=== PATIENT | male | born 1925 | race Caucasian/White ===

== ENCOUNTER 2016-11-06 10:10 | Inpatient (IN) | payer OTHER, MEDICARE ==
[2016-11-06] MEDS ORDERED: Sodium Chloride 0.9% 1,000 ML PRIMARY IV ONE (10:39)
[2016-11-06] MEDS ORDERED: NORMAL SALINE 10 ML SYRINGE FLUSH IVP PRN (10:39)
[2016-11-06 10:58] LABS: BASOPHILS # (AUTO) 0.05 10*3/UL; EOSINOPHILS % (AUTO) 6.6 % (0-8); HEMATOCRIT 40.9 % (42.0-52.0); HEMOGLOBIN 13.4 g/dL (14.0-18.0); IMM GRAN % (AUTO) 0 % (0-5); IMM GRAN# (AUTO) 0 10*3/UL; LYMPHOCYTES # (AUTO) 1.02 10*3/uL; LYMPHOCYTES % (AUTO) 19.7 % (10-50); MEAN CORPUSCULAR HEMOGLOBIN 29.5 PG (27-31); MEAN CORPUSCULAR HGB CONC 32.8 g/dL (33-37); MEAN PLATELET VOLUME 8.7 FL (7.4-12.2); MONOCYTES # (AUTO) 0.83 10*3/UL (0.3-0.8); MONOCYTES % (AUTO) 16.1 % (5-15); NEUTROPHILS # (AUTO) 2.93 10*3/UL; NEUTROPHILS % (AUTO) 56.6 % (50-80); RDW COEFFICIENT OF VARIATION 14.4 % (11.5-14.5); RED BLOOD COUNT 4.54 10^6/uL (4.70-6.10); WHITE BLOOD COUNT 5.17 10^3/uL (4.8-10.8)
[2016-11-06 11:01] LABS: PLATELET MORPHOLOGY COMMENT NORMAL MORPHOLOGY (NORM)
[2016-11-06 11:08] LABS: ASPARTATE AMINO TRANSFERASE 31 IU/L (21-57); BILIRUBIN,TOTAL 1.3 mg/dL (0.3-1.2); BLOOD UREA NITROGEN 27 mg/dL (7-22); BUN/CREATININE RATIO 16.87 (6-20); CALCIUM 9.2 mg/dL (8.7-10.7); CHLORIDE 106 meq/L (98-112); CREATININE 1.6 mg/dL (0.70-1.50); GLUCOSE 98 mg/dL (78-110); MAGNESIUM 2.2 mg/dL (1.6-2.4); POTASSIUM 4.8 meq/L (3.8-5.2); SODIUM 145 meq/L (135-145); TOTAL PROTEIN 6.9 g/dL (6.1-8.0)
[2016-11-06 11:20] LABS: CREATINE KINASE MB 1.55 NG/DL (0.00-5.00)
[2016-11-06 11:50] LABS: TROPONIN I 0.191 ng/mL (< 0.040)
--- NOTE | 2016-11-06 12:10 | EKG ---
[address] [address] Measurements Intervals [place] Rate: 65 P: -47 MO: 254 QRS: -65 QRSD: 200 T: 104 QT: 481 QTc: 492 Interpretive Statements ELECTRONIC VENTRICULAR PACEMAKER ABNORMAL RHYTHM ECG Compared to ECG 08/29/2016 18:52:12 No significant changes Electronically Signed On 11-06-16 15:00:20 MST by John Maldonado [email or web address]
[2016-11-06 12:17] LABS: BILIRUBIN,URINE NEGATIVE (NEG); CLARITY,URINE CLEAR (CLEAR); GLUCOSE, URINE (UA) NEGATIVE (NEG); LEUKOCYTE ESTERASE ,URINE NEGATIVE (NEG); NITRATE,URINE NEGATIVE (NEG); OCCULT BLOOD,URINE Trace-lysed (NEG); PROTEIN,URINE NEGATIVE (NEG); UROBILINOGEN,URINE 0.2 EU/dL (0.2)
[2016-11-06 12:18] LABS: URINE SAMPLE TYPE CLEAN CATCH URINE
[2016-11-06 12:34] LABS: BACTERIA,URINE RARE; SQUAMOUS EPITHELIAL CELL,UR RARE
--- NOTE | 2016-11-06 12:41 | DI ---
XR CXR 2VW PA/LAT,11/06/2016 11:59 AM: Clinical History: Cough and elevated BNP Previous Exam: August 28, 2016 Findings: PA and lateral views of the chest are obtained, and demonstrate cardiomegaly and some increased inter stitial markings. There is blunting of the left costophrenic angle which has improved significantly s dameon the prior exam. There is stable pacemaker. Impression: 1. Stable cardiomegaly. 2. Improving left pleural effusion.
[2016-11-06] MEDS ORDERED: FUROSEMIDE 10 MG/1 ML - 4 ML IVP ONE (14:15)
[2016-11-06] MEDS ORDERED: TAMSULOSIN 0.4 MG CAPSULE PO SCH (14:15)
--- NOTE | 2016-11-06 14:21 | PDOC ---
History and Physical - History of Present Illness Date and Time of Service: 11/06/2016 2:23 PM Chief Complaint: Dizziness, decreased energy and not feeling well for 1-2 days History of Present Illness: This is an 89 years old male with medical history significant for history of aortic stenosis status post aortic valve replacement in 2013 with bioprosthetic valve, hypertension, hypothyroidism and recent admission back in August for shortness of breath at that time it was attributed to congestive heart failure he had a an echocardiogram which showed wall motion abnormalities, potentially critical aortic stenosis and possible LV thrombus he was treated medically then and discharge and he followed up with cardiology and based on his description it sounds like he had a ROXY but he doesn't know the results. He said he came into the hospital because of history of dizziness that happened yesterday and today in addition to decreased exercise tolerance based on his description, he seems also to be fixated on his heart rate as he checks his heart rate and blood pressure and his oxygen and it sounded like his heart rates fluctuate and he was concerned about it. Because of all the symptoms he came into the ER who thought that he has congestive heart failure and was admitted. Currently he feels better he is denying symptoms not dizzy or lightheaded. And he is denying shortness of breath. There is no leg swelling, no PND and no orthopnea based on his description. There is no anginal chest pain based on his description. Past Medical History Medical History: 1. Hypertension. 2. Hyperlipidemia. 3. Aortic stenosis and aortic valve replacement in May 2014 borderline. 4. Pacemaker insertion for bradycardia in 1999- Surgical History: Aortic replacement bioprosthetic, appendectomy, ankle fracture repair Past Social History: Used to smoke, doesn't drink nor drugs and lives with his . Tobacco Use: Former Smoker Substance Use Type: None Alcohol Use: None Medication / Allergies Home Medications: Home Medications Medication Instructions Recorded Confirmed Type Acetaminophen [Acetaminophen 8 1 tab PO Q6H tab 06/29/14 11/06/16 History Hour] Aspirin 1 tab PO DAILY tab 06/29/14 11/06/16 History Docusate Sodium 1 cap PO BID cap 06/29/14 11/06/16 History Naproxen Sodium [Aleve] 1 cap PO QD #30 cap 06/09/16 11/06/16 History Furosemide 40 mg PO BID@0700,1300 #180 tab 09/30/16 11/06/16 Clinic Levothyroxine Sodium 1 tab PO QAM #90 tab 09/30/16 11/06/16 Clinic Lorazepam 1 mg PO QHS #90 tab 09/30/16 11/06/16 Clinic Losartan Potassium 1 tab PO DAILY #90 tab 09/30/16 11/06/16 Clinic Potassium Chloride 20 meq PO DAILY #90 tablet.er 09/30/16 11/06/16 Clinic Simvastatin 1 tab PO QHS #90 tab 09/30/16 11/06/16 Clinic Tamsulosin HCl 1 tab PO QHS #90 cap 09/30/16 11/06/16 Clinic Allergies/Adverse Reactions: Allergies Allergy/AdvReac Type Severity Reaction Status Date / Time No Known Allergies Allergy Verified 11/06/16 10:26 Review of Systems - Review of Systems All Systems: Reviewed & No Additional Complaints Except as Stated Exam - Vitals Vital Signs: Vital Signs Temperature 97.4 F Temperature Source Temporal Artery Scan Pulse Rate [Pulse Oximeter] 70 Pulse Rate 64 Respiratory Rate 26 Blood Pressure [Left Arm] 130/69 Blood Pressure 129/82 Pulse Ox 98 Oxygen Flow Rate 2 Oxygen Delivery Method Nasal Cannula Height 5 ft 8 in Weight 183 lb 3.2 oz - General General Appearance: POSITIVE: No Acute Distress, Cooperative - Head Head Exam: POSITIVE: Normal Inspection, Atraumatic - Eye Eye Exam: POSITIVE: Normal Appearance - ENT ENT Exam: POSITIVE: Normal Exam - Neck Neck Exam: POSITIVE: Normal Inspection - Respiratory Respiratory Exam: POSITIVE: Clear to Auscultation - Bilaterally - Cardiovascular Cardiovascular Exam: POSITIVE: RRR Additional Cardiovascular Details: Prosthetic sounds. - GI/Abdominal GI/Abdominal Exam: POSITIVE: Normal Bowel Sounds, Non Tender, Non Distended, Soft - Rectal Rectal Exam: POSITIVE: Deferred - External Exam: POSITIVE: Deferred - Extremities Extremities Exam: POSITIVE: Normal Inspection - Back Back Exam: POSITIVE: Normal Inspection - Neurological Neurological Exam: POSITIVE: Alert, CN II-XII Intact, Speech Intact / Clear, Moves All Extremities Equally - Psychiatric Psychiatric Exam: POSITIVE: Normal Affect - Integumentary Integumentary Exam: POSITIVE: Normal Color Results - Labs CBC and BMP: 11/06/16 10:50 11/06/16 10:50 - EKG Data -: EKG Interpreted by Me (EKG showed paced rhythm) - Imaging Status: Report Reviewed by Me (Cardiomegaly with interstitial changes noted. The pleural effusion that he had before seem to be improved) Assessment and Plan - Patient Problems (1) Congestive heart failure Current Visit: No Status: Acute Comment: His description of symptoms is vague but with a reduced exercise tolerance and the dizziness this may be related to to CHF. I think will give him a trial of Lasix try to get the records from cardiology about his ROXY and may need to discuss with them and repeat his troponin tomorrow. Qualifiers: Congestive heart failure type: unspecified congestive heart failure type Congestive heart failure chronicity: chronic Qualified Description: Chronic congestive heart failure, unspecified congestive heart failure type Qualifier Code(s): (I50.9) Heart failure, unspecified (2) Hypertension Current Visit: Yes Status: Acute Comment: Same medications (3) Hypothyroidism Current Visit: Yes Status: Acute Comment: Same medications (4) Elevated troponin Current Visit: Yes Status: Acute Comment: There is mild elevation in his troponin was repeated. Based on his description he didn't have a bypass. He is on aspirin already.
[2016-11-06] MEDS: NORMAL SALINE 10 ML SYRINGE FLUSH IVP PRN (14:33)
[2016-11-06] MEDS: TAMSULOSIN 0.4 MG CAPSULE PO SCH (20:50)
[2016-11-06] MEDS: DOCUSATE 100 MG CAPSULE PO SCH (20:51)
[2016-11-06] MEDS: Simvastatin Tab 40 MG TAB PO SCH (20:51)
[2016-11-06] MEDS: LORazepam 1 MG TABLET PO SCH (20:51)
[2016-11-06] MEDS ORDERED: Simvastatin Tab 40 MG TAB PO SCH (21:00)
[2016-11-06] MEDS ORDERED: LORazepam 1 MG TABLET PO SCH (21:00)
--- NOTE | 2016-11-07 00:10 | PDOC ---
General Adult HPI - General Chief Complaint: Neurological Complaints Stated Complaint: shortness of breath," I just don't feel well" dizzy, nausea, left arm pain and numbness Date Seen by Provider: 11/06/16 Time Seen by Provider: 10:20 Source: POSITIVE: Patient, Spouse, Old records Exam Limitations: POSITIVE: No limitations Nurse's Notes Reviewed & Considered: Yes - History of Present Illness Initial Comment: The patient is an 89-year-old male. He presents to the emergency room complaining of multiple complaints. He states he" feels unstable and I just don 't feel well". He complains of feeling dizzy and he states he gets short of breath with minimal exertion. No fevers or chills. No head chest or abdominal pain. He does complain of some numbness to the left side of his face and left arm. Patient has a history of aortic valvular heart disease and has had an aortic valve replacement. He also has a history of congestive heart failure. He has a history of a ventricular pacemaker. He states he has been evaluated by his hearing therapy teacher in [place] and he states he has been told that his aortic valve is "getting bad", but "they don't know if they can do anything about it." He was admitted this past August for congestive heart failure. Have you received a tetanus shot in the past 10 years?: No Body Location Affected: REPORTS: Other (As above; multiple somatic complaints) Timing: REPORTS: Gradual, Getting Worse Duration: >24 hours (2-3 days) Severity: Moderate Quality: REPORTS: Other (Patient denies any pain) Modifying Factors: improves with: Exercise (Shortness of breath with activity) Similar Symptoms Previously: Yes Recent Care Received: REPORTS: Recently Seen, Treated by MD (As above) Any Prior Injuries Related to Current Complaint?: No - Patient Home Medications Home Medications: Home Medications Acetaminophen [Acetaminophen 8 Hour] 1 tab PO Q6H tab 06/29/14 Aspirin 1 tab PO DAILY tab 06/29/14 Docusate Sodium 1 cap PO BID cap 06/29/14 Naproxen Sodium [Aleve] 1 cap PO QD #30 cap 06/09/16 Furosemide 40 mg PO BID@0700,1300 #180 tab 09/30/16 Levothyroxine Sodium 1 tab PO QAM #90 tab 09/30/16 Lorazepam 1 mg PO QHS #90 tab 09/30/16 Losartan Potassium 1 tab PO DAILY #90 tab 09/30/16 Potassium Chloride 20 meq PO DAILY #90 tablet.er 09/30/16 Simvastatin 1 tab PO QHS #90 tab 09/30/16 Tamsulosin HCl 1 tab PO QHS #90 cap 09/30/16 - Patient Allergies Allergies/Adverse Reactions: Allergies Allergy/AdvReac Type Severity Reaction Status Date / Time No Known Allergies Allergy Verified 11/06/16 22:29 Past Medical History - heen HEENT History: Hard of Hearing, Other (please comment) Additional HEENT History: BILATERAL HEARING AIDES Cardiovascular History: Hypertension, Previous [place], Pacemaker, Hyperlipidemia Additional Cardiovasular History: murmur, aortic stenosis by history. AORTIC VALVE REPLACEMENT IN MAY 2014 Respiratory History: Denies History Gastrointestinal History: Denies History Genitourinary History: Other (please comment) Additional Genitourinary History: BPH Endocrine History: Hypothyroidism, Other (please comment) Additional Endocrine History: PRE DIABETES Musculoskeletal History: Other (please comment) Prosthesis or Implant: No Additional Musculoskeletal History: Nerve damage at the bottom of feet bilaterally. Neurological History: Denies History Blood Disorders: Denies History Psychiatric History: Denies History History of Sexually Transmitted Diseases: No Male Reproductive History: Denies History Cancer History: Skin In Past Year Been Physically Harmed or Verbally Threatened: No (PER PATIENT) History of MDRO: No History of Other Communicable Diseases: No Tobacco Use: Former Smoker Alcohol Use: None Substance Use Type: None Previous Surgical History: Yes Type / Date of Surgery: APPY, R ANKLE, PACEMAKER, BILATERAL CATARACT REMOVAL, OPEN HEART FOR AORTIC VALVE REPLACEMENT 05/2014 Anesthesia Reactions: No Malignant Hyperthermia: No Family History of Malignant Hyperthermia: No Significant Family History: Other (please comment) Additional Family History: UNKNOWN Past Medical History Reviewed: Reviewed - No Changes ROS - Limitations ROS Limitations: No Limitations Constitution: REPORTS: Weakness, Other (Fatigability and dizziness) Cardiovascular: REPORTS: Other (Dyspnea with exertion) Respiratory: REPORTS: Shortness Of Breath Neurological: REPORTS: Denies Neuro Symptoms Gastrointestinal: REPORTS: Denies GI Symptoms Endocrine: REPORTS: Denies Symptoms Musculoskeletal: REPORTS: Denies MS Symptoms Genitourinary: REPORTS: Denies Symptoms Eyes: REPORTS: Denies Symptoms ENT: REPORTS: Denies Symptoms Skin: REPORTS: Denies Skin Symptoms Lympathic: REPORTS: Denies Lympathic Symptoms Immunologic: POSITIVE: Denies Symptoms Psychiatric: POSITIVE: Denies Psych Symptoms General Adult Exam - General Appearance General Appearance: POSITIVE: Alert, Cooperative, No Acute Distress, No Evidence of Trauma - HEENT HEENT: POSITIVE: Head Inspection Nml, Eyes Inspection Nml, Ears Inspection Nml, Nose Inspection Nml, Oral/Dental Inspect. Nml, Pharynx Inspect. Nml, PERRL, EOMI - Pupils Pupil Size: 4 mm: Bilateral (PERRLA) - Neck Neck: POSITIVE: Normal Inspection, Thyroid Normal - Respiratory Respiratory: POSITIVE: Rales (Bibasilar rales) - Cardiovascular Cardiovascular: POSITIVE: Regular Rate & Rhythm, No Murmur, No Gallop, PMI Normal Peripheral Pulses: Radial (R): 2+, Radial (L): 2+ - Abdomen Abdomen: Soft: (All Quadrants), Normal Bowel Sounds: (All Quadrants), Denies Tenderness: (All Quadrants), No Splenomegaly: (All Quadrants), No Hepatomegaly: (All Quadrants), No Guarding: (All Quadrants), No Rebound: (All Quadrants), No Palpable Pulse: (All Quadrants), No Palpabale Mass: (All Quadrants), No Distention: (All Quadrants), No Rigidity: (All Quadrants) - Back Back: POSITIVE: Normal Inspection - Skin Skin: POSITIVE: Normal Color, Warm, Dry, No Rash - Extremities Extremity: Non-Tender: (All Extremities), Normal ROM: (All Extremities), Normal Inspection: (All Extremities) - Neurological / Psychological Neurological: POSITIVE: Oriented X3, director oracle database Normal As Tested, Motor Normal, Sensation Normal, 5, 6 General Adult Progress - Results Reviewed by me Xrays/CTs/US Reviewed by me: Yes Discussed with Radiologist: Yes Radiology Findings: Some congestion. Pacemaker and artificial aortic valve noted Lab Results Reviewed: Yes Lab Results:: Laboratory Results 11/06/16 11/06/16 Range/Units 10:50 12:07 WBC 5.17 (4.8-10.8) 10^3/uL RBC 4.54 L (4.70-6.10) 10^6/uL Hgb 13.4 L (14.0-18.0) g/dL Hct 40.9 L (42.0-52.0) % MCV 90.1 H (80-90) FL MCH 29.5 (27-31) PG MCHC 32.8 L (33-37) g/dL RDW Std Deviation 46.6 (39-50) fL RDW Coeff of Butch 14.4 (11.5-14.5) % Plt Count 192 (140-350) 10*3/uL MPV 8.7 (7.4-12.2) FL Immature Gran % (Auto) 0 (0-5) % Neut % (Auto) 56.6 (50-80) % Lymph % (Auto) 19.7 (10-50) % [place] % (Auto) 16.1 H (5-15) % Eos % (Auto) 6.6 (0-8) % Baso % (Auto) 1.0 (0-1) % Immature Gran # (Auto) 0 10*3/UL Neut # (Auto) 2.93 10*3/UL Lymph # (Auto) 1.02 10*3/uL [place] # (Auto) 0.83 H (0.3-0.8) 10*3/UL Eos # (Auto) 0.34 10*3/UL Baso # (Auto) 0.05 10*3/UL WBC Morphology Comment Normal morphology (NORM) Plt Morphology Comment Normal morphology (NORM) RBC Morph Comment Normal morphology (NORM) Sodium 145 (135-145) meq/L Potassium 4.8 (3.8-5.2) meq/L Chloride 106 (98-112) meq/L Carbon Dioxide 25 (23-33) meq/L Anion Gap 14 (5-20) BUN 27 H (7-22) mg/dL Creatinine 1.6 H (0.70-1.50) mg/dL Estimated GFR Reference Librarian BUN/Creatinine Ratio 16.87 (6-20) Glucose 98 (78-110) mg/dL Calculated Osmolality 304.0 H (267-292) mOsm/kg Calcium 9.2 (8.7-10.7) mg/dL Magnesium 2.2 (1.6-2.4) mg/dL Total Bilirubin 1.3 H (0.3-1.2) mg/dL AST 31 (21-57) IU/L ALT 27 (21-72) IU/L Alkaline Phosphatase 120 (38-126) IU/L Total Creatine Kinase 78 (55-170) IU/L CK-MB (CK-2) 1.55 (0.00-5.00) NG/DL Troponin I 0.191 H* (< 0.040) ng/mL NT-Pro-B Natriuret Pep 4390 H (0-450) PG/ML Total Protein 6.9 (6.1-8.0) g/dL Albumin 4.3 (3.5-4.8) g/dL Globulin 2.7 (2.50-4.10) g/dL Albumin/Globulin Ratio 1.50 (1.3-2.0) mg/g TSH 3.14 (0.2700-4.2000) uIU/mL Ur Collection Type Clean catch urine Urine Color Yellow Urine Clarity Clear (CLEAR) Urine pH 6.0 (5.0-8.5) Ur Specific [place] 1.015 (1.005-1.030) Urine Protein Negative (NEG) mg/dl Urine Glucose (UA) Negative (NEG) mg/dL Urine Ketones Negative (NEG) Urine Occult Blood Trace-lysed H (NEG) Urine Nitrate Negative (NEG) Urine Bilirubin Negative (NEG) Urine Urobilinogen 0.2 (0.2) EU/dL Ur Leukocyte Esterase Negative (NEG) Urine RBC 2-4 (NONE) /hpf Urine WBC 1-3 (NONE) Ur Squamous Epith Cells Rare (NONE) Ur Renal Epithelial Cell None (NONE) Urine Crystals None Urine Bacteria Rare (NONE) Urine Casts None (NONE) Urine Mucus None (NONE) Urine Trichomonas None (NONE) Urine Yeast None (NONE) Ur Culture Indicated? Culture not set EKG Interpreted/Reviewed By Me:: Yes (ventricular pacemaker) EKG Interpretation:: POSITIVE: Abnormal EKG (Ventricular pacemaker) - Patient's Progress Pain Medication Addressed: POSITIVE: Not Applicable School/Work Release Addressed: POSITIVE: Not Applicable Re-Examine Time: 12:00 Status: POSITIVE: Unchanged, Re-Examined Antibiotics Given: No - Consult Consult (If Yes, Name of Consulting MD & Time Called): Yes (Dr. Hammer, hospitalist, [id number]) Consulting MD will see pt:: POSITIVE: [facility] Admit Counseled: POSITIVE: Patient, Family, RE: Lab Results, RE: Radiology Results, RE : DX, RE: Need for F/U Patient Care Time - Estimated PCT Patient Care Time (In Minutes): 60 Vital Signs - Recent Vital Signs Vital Signs: Vital Signs (Last 8 hours) Temp Pulse Pulse Pulse Resp BP Pulse Ox 11/06/16 22:51 75 11/06/16 20:17 97.1 F 76 20 144/68 96 11/06/16 19:00 68 66 65 24 11/06/16 16:17 97.6 F 66 24 130/70 93 - VS Reviewed Vital Signs Reviewed: Yes Discharge Clinical Impression: Status post placement of cardiac pacemaker, Elevated troponin Congestive heart failure Qualifiers: Congestive heart failure type: unspecified congestive heart failure type Congestive heart failure chronicity: chronic Qualifier Code: (I50.9) Heart failure, unspecified Discharge Disposition: Admit to Inpatient Condition: Fair Date Decision to Admit to Inpatient: 11/06/16 Time Decision to Admit to Inpatient: 12:00
[2016-11-07] MEDS: LEVOTHYROXINE 75 MCG TABLET PO SCH (05:37)
[2016-11-07 06:44] LABS: BILIRUBIN,TOTAL 1.7 mg/dL (0.3-1.2); CALCIUM 9.4 mg/dL (8.7-10.7); CREATININE 1.4 mg/dL (0.70-1.50); POTASSIUM 4.4 meq/L (3.8-5.2); TOTAL PROTEIN 6.7 g/dL (6.1-8.0)
[2016-11-07] MEDS: NORMAL SALINE 10 ML SYRINGE FLUSH IVP PRN (06:55)
[2016-11-07] MEDS ORDERED: FUROSEMIDE 10 MG/1 ML - 4 ML IVP SCH (07:00)
[2016-11-07] MEDS: POTASSIUM CHLORIDE 20 MEQ TAB PO SCH (09:24)
[2016-11-07] MEDS: LOSARTAN 50 MG TABLET PO SCH (09:24)
[2016-11-07] MEDS: ASPIRIN 81 MG (BABY) CHEWABLE TABLET PO SCH (09:24)
[2016-11-07] MEDS: DOCUSATE 100 MG CAPSULE PO SCH ×2 (09:24→20:53)
--- NOTE | 2016-11-07 13:12 | PDOC(PROG) ---
Interval History: Doing better less short of breath No chest pain no nausea vomiting Objective : Data - Labs CBC and BMP: 11/06/16 10:50 11/07/16 05:31 Labs - Last 24 Hours: Laboratory Results 11/06/16 11/07/16 Range/Units 17:54 05:31 Sodium 141 (135-145) meq/L Potassium 4.4 (3.8-5.2) meq/L Chloride 103 (98-112) meq/L Carbon Dioxide 24 (23-33) meq/L Anion Gap 14 (5-20) BUN 28 H (7-22) mg/dL Creatinine 1.4 (0.70-1.50) mg/dL Estimated GFR (>60 ml/min/1.73m(2)) BUN/Creatinine Ratio 20.00 (6-20) Glucose 90 (78-110) mg/dL Calculated Osmolality 297.0 H (267-292) mOsm/kg Calcium 9.4 (8.7-10.7) mg/dL Total Bilirubin 1.7 H (0.3-1.2) mg/dL AST 22 (21-57) IU/L ALT 26 (21-72) IU/L Alkaline Phosphatase 113 (38-126) IU/L Troponin I 0.193 H* 0.168 H* (< 0.040) ng/mL NT-Pro-B Natriuret Pep 3880 H (0-450) PG/ML Total Protein 6.7 (6.1-8.0) g/dL Albumin 4.2 (3.5-4.8) g/dL Globulin 2.6 (2.50-4.10) g/dL Albumin/Globulin Ratio 1.60 (1.3-2.0) mg/g Objective : Exam - General General Appearance: Cooperative - Neck Neck Exam: Normal Inspection - Respiratory Respiratory Exam: Clear to Auscultation - Bilaterally, Decreased Breath Sounds - Cardiovascular Cardiovascular Exam: RRR, No Murmur, +S1, +S2 - GI/Abdominal GI/Abdominal Exam: Non Tender, Non Distended, Soft - Extremities Extremities Exam: No Clubbing Present, No Edema Present, No Cyanosis Present - Neurological Neurological Exam: Alert, CN II-XII Intact, No Facial Droop Assessment and Plan - Patient Problems (1) Congestive heart failure Current Visit: Yes Status: Acute Qualifiers: Congestive heart failure type: unspecified congestive heart failure type Congestive heart failure chronicity: chronic Qualified Description: Chronic congestive heart failure, unspecified congestive heart failure type Qualifier Code(s): (I50.9) Heart failure, unspecified - Assessment / Plan Additional Assessment/Plan Details: #1 cardiomyopathyelevated BNP 4000 range today it is better mildly elevated troponins I had a discussion with Dr. keshav Rogers I told him the situation with the patient and his history he also looked at his notes from previous visits recommended to ira patient follow-up with him as an outpatient the patient artery has an appointment on November [address] gregorio
[2016-11-07] MEDS ORDERED: FUROSEMIDE 10 MG/1 ML - 2 ML VIAL IVP SCH (13:30)
[2016-11-07] MEDS: FUROSEMIDE 10 MG/1 ML - 4 ML IVP SCH (13:42)
[2016-11-07] MEDS: Simvastatin Tab 40 MG TAB PO SCH (20:52)
[2016-11-07] MEDS: LORazepam 1 MG TABLET PO SCH (20:53)
[2016-11-07] MEDS: TAMSULOSIN 0.4 MG CAPSULE PO SCH (20:53)
[2016-11-08] MEDS: LEVOTHYROXINE 75 MCG TABLET PO SCH (05:58)
[2016-11-08 07:16] VITALS: TEMP 97.2
[2016-11-08] MEDS: FUROSEMIDE 10 MG/1 ML - 4 ML IVP SCH (07:17)
--- NOTE | 2016-11-08 07:42 | EKG ---
[address] [address] Measurements Intervals [place] Rate: 61 P: -42 IA: 276 QRS: -70 QRSD: 206 T: 102 QT: 503 QTc: 506 Interpretive Statements ELECTRONIC VENTRICULAR PACEMAKER ABNORMAL RHYTHM ECG Compared to ECG 11/06/2016 10:19:04 No significant changes Electronically Signed On 11-08-16 16:05:06 MST by John Maldonado [email or web address]
--- NOTE | 2016-11-08 09:00 | DCSUMMARY ---
Hospitalization Summary Hospital Course: Final Discharge Diagnosis: Current Visit Problems Problem Status Priority Diagnosed Code Congestive heart failure Acute I50.9 Elevated troponin Acute R74.8 Hypertension Acute I10 Hypothyroidism Acute E03.9 Status post placement of cardiac pacemaker Acute Z95.0 Diagnostic Data, Laboratory Data, and Procedures of Signifigance: Laboratory Results 11/06/16 11/06/16 11/06/16 Range/Units 10:50 12:07 17:54 WBC 5.17 (4.8-10.8) 10^3/uL RBC 4.54 L (4.70-6.10) 10^6/uL Hgb 13.4 L (14.0-18.0) g/dL Hct 40.9 L (42.0-52.0) % MCV 90.1 H (80-90) FL MCH 29.5 (27-31) PG MCHC 32.8 L (33-37) g/dL RDW Std Deviation 46.6 (39-50) fL RDW Coeff of Butch 14.4 (11.5-14.5) % Plt Count 192 (140-350) 10*3/uL MPV 8.7 (7.4-12.2) FL Immature Gran % (Auto) 0 (0-5) % Neut % (Auto) 56.6 (50-80) % Lymph % (Auto) 19.7 (10-50) % [place] % (Auto) 16.1 H (5-15) % Eos % (Auto) 6.6 (0-8) % Baso % (Auto) 1.0 (0-1) % Immature Gran # (Auto) 0 10*3/UL Neut # (Auto) 2.93 10*3/UL Lymph # (Auto) 1.02 10*3/uL [place] # (Auto) 0.83 H (0.3-0.8) 10*3/UL Eos # (Auto) 0.34 10*3/UL Baso # (Auto) 0.05 10*3/UL WBC Morphology Comment Normal morphology (NORM) Plt Morphology Comment Normal morphology (NORM) RBC Morph Comment Normal morphology (NORM) Sodium 145 (135-145) meq/L Potassium 4.8 (3.8-5.2) meq/L Chloride 106 (98-112) meq/L Carbon Dioxide 25 (23-33) meq/L Anion Gap 14 (5-20) BUN 27 H (7-22) mg/dL Creatinine 1.6 H (0.70-1.50) mg/dL Estimated GFR Manager Reading BUN/Creatinine Ratio 16.87 (6-20) Glucose 98 (78-110) mg/dL Calculated Osmolality 304.0 H (267-292) mOsm/kg Calcium 9.2 (8.7-10.7) mg/dL Magnesium 2.2 (1.6-2.4) mg/dL Total Bilirubin 1.3 H (0.3-1.2) mg/dL AST 31 (21-57) IU/L ALT 27 (21-72) IU/L Alkaline Phosphatase 120 (38-126) IU/L Total Creatine Kinase 78 (55-170) IU/L CK-MB (CK-2) 1.55 (0.00-5.00) NG/DL Troponin I 0.191 H* 0.193 H* (< 0.040) ng/mL NT-Pro-B Natriuret Pep 4390 H (0-450) PG/ML Total Protein 6.9 (6.1-8.0) g/dL Albumin 4.3 (3.5-4.8) g/dL Globulin 2.7 (2.50-4.10) g/dL Albumin/Globulin Ratio 1.50 (1.3-2.0) mg/g TSH 3.14 (0.2700-4.2000) uIU/mL Ur Collection Type Clean catch urine Urine Color Yellow Urine Clarity Clear (CLEAR) Urine pH 6.0 (5.0-8.5) Ur Specific [place] 1.015 (1.005-1.030) Urine Protein Negative (NEG) mg/dl Urine Glucose (UA) Negative (NEG) mg/dL Urine Ketones Negative (NEG) Urine Occult Blood Trace-lysed H (NEG) Urine Nitrate Negative (NEG) Urine Bilirubin Negative (NEG) Urine Urobilinogen 0.2 (0.2) EU/dL Ur Leukocyte Esterase Negative (NEG) Urine RBC 2-4 (NONE) /hpf Urine WBC 1-3 (NONE) Ur Squamous Epith Cells Rare (NONE) Ur Renal Epithelial Cell None (NONE) Urine Crystals None Urine Bacteria Rare (NONE) Urine Casts None (NONE) Urine Mucus None (NONE) Urine Trichomonas None (NONE) Urine Yeast None (NONE) Ur Culture Indicated? Culture not set 11/07/16 11/08/16 Range/Units 05:31 07:39 WBC (4.8-10.8) 10^3/uL RBC (4.70-6.10) 10^6/uL Hgb (14.0-18.0) g/dL Hct (42.0-52.0) % MCV (80-90) FL MCH (27-31) PG MCHC (33-37) g/dL RDW Std Deviation (39-50) fL RDW Coeff of Butch (11.5-14.5) % Plt Count (140-350) 10*3/uL MPV (7.4-12.2) FL Immature Gran % (Auto) (0-5) % Neut % (Auto) (50-80) % Lymph % (Auto) (10-50) % [place] % (Auto) (5-15) % Eos % (Auto) (0-8) % Baso % (Auto) (0-1) % Immature Gran # (Auto) 10*3/UL Neut # (Auto) 10*3/UL Lymph # (Auto) 10*3/uL [place] # (Auto) (0.3-0.8) 10*3/UL Eos # (Auto) 10*3/UL Baso # (Auto) 10*3/UL WBC Morphology Comment (NORM) Plt Morphology Comment (NORM) RBC Morph Comment (NORM) Sodium 141 (135-145) meq/L Potassium 4.4 (3.8-5.2) meq/L Chloride 103 (98-112) meq/L Carbon Dioxide 24 (23-33) meq/L Anion Gap 14 (5-20) BUN 28 H (7-22) mg/dL Creatinine 1.4 (0.70-1.50) mg/dL Estimated GFR BUN/Creatinine Ratio 20.00 (6-20) Glucose 90 (78-110) mg/dL Calculated Osmolality 297.0 H (267-292) mOsm/kg Calcium 9.4 (8.7-10.7) mg/dL Magnesium (1.6-2.4) mg/dL Total Bilirubin 1.7 H (0.3-1.2) mg/dL AST 22 (21-57) IU/L ALT 26 (21-72) IU/L Alkaline Phosphatase 113 (38-126) IU/L Total Creatine Kinase (55-170) IU/L CK-MB (CK-2) (0.00-5.00) NG/DL Troponin I 0.168 H* 0.106 H (< 0.040) ng/mL NT-Pro-B Natriuret Pep 3880 H 3190 H (0-450) PG/ML Total Protein 6.7 (6.1-8.0) g/dL Albumin 4.2 (3.5-4.8) g/dL Globulin 2.6 (2.50-4.10) g/dL Albumin/Globulin Ratio 1.60 (1.3-2.0) mg/g TSH (0.2700-4.2000) uIU/mL Ur Collection Type Urine Color Urine Clarity (CLEAR) Urine pH (5.0-8.5) Ur Specific [place] (1.005-1.030) Urine Protein (NEG) mg/dl Urine Glucose (UA) (NEG) mg/dL Urine Ketones (NEG) Urine Occult Blood (NEG) Urine Nitrate (NEG) Urine Bilirubin (NEG) Urine Urobilinogen (0.2) EU/dL Ur Leukocyte Esterase (NEG) Urine RBC (NONE) /hpf Urine WBC (NONE) Ur Squamous Epith Cells (NONE) Ur Renal Epithelial Cell (NONE) Urine Crystals Urine Bacteria (NONE) Urine Casts (NONE) Urine Mucus (NONE) Urine Trichomonas (NONE) Urine Yeast (NONE) Ur Culture Indicated? History and Physical pertinent to Admission: Admitted for shortness of breath and dizziness and congestive heart failure Medical History: 1. Hypertension. 2. Hyperlipidemia. 3. Aortic stenosis and aortic valve replacement in May 2014 borderline. 4. Pacemaker insertion for bradycardia in Surgical History: Aortic replacement bioprosthetic, appendectomy, ankle fracture repair Past Social History: Used to smoke, doesn't drink nor drugs and lives with his . 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 Was admitted to the hospital because of dizziness since shortness of breath. He was diuresed with IV Lasix and also had positive troponins this morning he was scheduled for Lexiscan stress test and he started having chest pain he would put his hand in the middle chest and kept on saying something is funny and this is not resolved he also has a quite severe dementia and at times that he is unable to describe what he actually feels I talked to Dr. Rogers yesterday which recommended to keep on diuresing him and there was no need to be transferred this morning I talked with Dr. De Santiago because of his ongoing chest pain and still positive troponins and after I talk to the patient he said he is okay with that catheter. That's what the microeconomics professor recommends he will be transferred via ground ambulance to [facility] [place], [place] On the date of discharge, the patient was examined: Gen.: No acute distress, alert, nontoxic Heart: Regular rate and rhythm, no murmurs, clicks, gallops, or rubs Lungs: Clear to auscultation bilaterally, breathing is nonlabored Abdomen/GI: Normal tones on auscultation, soft, nontender, nondistended Musculoskeletal/extremities: No clubbing, cyanosis, or edema Vitals reviewed and are listed below Vital Signs (24 hrs) Temp Pulse Pulse Pulse Resp BP Pulse Ox 11/08/16 07:16 97.2 F 65 20 106/60 96 11/08/16 07:00 65 60 11/08/16 04:57 97.9 F 73 18 121/63 93 11/08/16 03:00 65 11/08/16 01:00 62 20 120/63 94 11/07/16 23:00 66 11/07/16 20:35 97.8 F 70 20 140/69 96 11/07/16 19:00 61 68 11/07/16 15:51 97.5 F 68 18 109/60 94 11/07/16 15:00 66 11/07/16 13:00 97.6 F 64 18 121/71 96 11/07/16 11:00 60 Assessment and Plan: 1. As per discharge assessments above 2. Disposition: [facility] [place], [place] 3. Condition on discharge, stable and improved. 4. Diet: regular diet 5. Activities: resume normal activities 6. Follow-Up: 1. PCP 2. 7. Medications at the Time of Discharge: 8. Time, care, counseling and coordination of care for this discharge is greater than 30 minutes. Home Medications Medication Instructions Recorded Confirmed Type Acetaminophen [Acetaminophen 8 1 tab PO Q6H tab 06/29/14 11/06/16 History Hour] Aspirin 1 tab PO DAILY tab 06/29/14 11/06/16 History Docusate Sodium 1 cap PO BID cap 06/29/14 11/06/16 History Naproxen Sodium [Aleve] 1 cap PO QD #30 cap 06/09/16 11/06/16 History Furosemide 40 mg PO BID@0700,1300 #180 tab 09/30/16 11/06/16 Clinic Levothyroxine Sodium 1 tab PO QAM #90 tab 09/30/16 11/06/16 Clinic Lorazepam 1 mg PO QHS #90 tab 09/30/16 11/06/16 Clinic Losartan Potassium 1 tab PO DAILY #90 tab 09/30/16 11/06/16 Clinic Potassium Chloride 20 meq PO DAILY #90 tablet.er 09/30/16 11/06/16 Clinic Simvastatin 1 tab PO QHS #90 tab 09/30/16 11/06/16 Clinic Tamsulosin HCl 1 tab PO QHS #90 cap 09/30/16 11/06/16 Clinic Active Medications Generic Name Dose Route Start Last Admin Trade Name Freq PRN Reason Stop Dose Admin Aspirin 81 mg 11/07/16 09:00 11/07/16 09:24 Aspirin Chewable Tab PO 81 mg DAILY BRINDA Administration Docusate Sodium 100 mg 11/06/16 21:00 11/07/16 20:53 Colace PO 100 mg BID BRINDA Administration Furosemide 40 mg 11/07/16 13:45 11/08/16 07:17 Lasix Inj IVP 40 mg 0700,1300 BRINDA Administration Sodium Chloride 25 mls @ 200 mls/hr 11/06/16 14:11 Normal Saline 0.9% IV .Post Infusion PRN No Primary IV for Flush ONLY Levothyroxine Sodium 75 mcg 11/07/16 06:30 11/08/16 05:58 Synthroid PO 75 mcg DAILY@0630 BRINDA Administration Lorazepam 1 mg 11/06/16 21:00 11/07/16 20:53 Ativan Tab PO 1 mg BEDTIME BRINDA Administration Losartan Potassium 100 mg 11/07/16 09:00 11/07/16 09:24 Cozaar PO 100 mg DAILY BRINDA Administration Potassium Chloride 20 meq 11/07/16 09:00 11/07/16 09:24 Klor-Con PO 20 meq DAILY BRINDA Administration Simvastatin 40 mg 11/06/16 21:00 11/07/16 20:52 Zocor PO 40 mg BEDTIME BRINDA Administration Sodium Chloride 5 - 20 ml 11/06/16 14:11 11/07/16 06:55 Saline Flush IVP 10 ml BID PRN Administration Flush Tamsulosin HCl 0.4 mg 11/06/16 21:00 11/07/16 20:53 Flomax PO 0.4 mg BEDTIME BRINDA Administration Exam - Vitals Vital Signs: Vital Signs Temperature 97.2 F Temperature Source Temporal Artery Scan Pulse Rate [Apical] 60 Pulse Rate [Pulse Oximeter] 65 Pulse Rate [Telemetry] 65 Pulse Rate 65 Respiratory Rate 20 Blood Pressure [Left Arm] 106/60 Blood Pressure 129/82 Pulse Ox 96 Oxygen Flow Rate 2 Oxygen Delivery Method Nasal Cannula Height 5 ft 8 in Weight 81.465 kg Patient Problems - Patient Problem List (1) Congestive heart failure Current Visit: Yes Status: Acute Qualifiers: Congestive heart failure type: unspecified congestive heart failure type Congestive heart failure chronicity: chronic Qualified Description: Chronic congestive heart failure, unspecified congestive heart failure type Qualifier Code(s): (I50.9) Heart failure, unspecified
[2016-11-08 09:22] VITALS: RESP 16
[2016-11-08] MEDS: POTASSIUM CHLORIDE 20 MEQ TAB PO SCH (09:31)
[2016-11-08] MEDS: DOCUSATE 100 MG CAPSULE PO SCH (09:33)
[2016-11-08] MEDS: ASPIRIN 81 MG (BABY) CHEWABLE TABLET PO SCH (09:40)
[2016-11-08] MEDS: LOSARTAN 50 MG TABLET PO SCH (09:40)
[2016-11-08] MEDS ORDERED: LOSARTAN 50 MG TABLET PO ONE (09:41)
[2016-11-08] MEDS ORDERED: ASPIRIN 81 MG (BABY) CHEWABLE TABLET ONE (09:41)
== END 2016-11-08 09:00 | disposition short-term general hospital (02) | DRG 293 ==
LOC: ER 10:10 → MED/SURG 12:52
PROVIDERS: ADMIT Internal Medicine; ATTEND Internal Medicine
DX: I50.9 Heart failure, unspecified (principal); Z95.0 Presence of cardiac pacemaker; I10 Essential (primary) hypertension; E03.9 Hypothyroidism, unspecified; I42.9 Cardiomyopathy, unspecified; I20.0 Unstable angina
CPT/HCPCS: 36415; 71020; 80053; 81001; 81003; 82550; 82553; 83735; 83880; 84443; 84484; 85025; 93005; 93010; 96374; 99285; J1940; J7030

== ENCOUNTER → 2016-12-06 | Outpatient (CLI) | payer OTHER, MEDICARE | LOC: MMPC 09:00 | DX: J20.9 Acute bronchitis, unspecified (principal); J06.9 Acute upper respiratory infection, unspecified | CPT/HCPCS: 99213; G0463 ==

== ENCOUNTER → 2016-12-10 | Outpatient (CLI) | payer OTHER, MEDICARE | LOC: MMPC 11:11 | PROVIDERS: ATTEND Internal Medicine | DX: I35.0 Nonrheumatic aortic (valve) stenosis (principal); Z95.3 Presence of xenogenic heart valve; R41.3 Other amnesia; Z95.0 Presence of cardiac pacemaker | CPT/HCPCS: 99214; G0463 ==

== ENCOUNTER → 2017-03-12 | Outpatient (CLI) | payer OTHER, MEDICARE | LOC: MMPC 11:11 | PROVIDERS: ATTEND Internal Medicine | DX: Z95.3 Presence of xenogenic heart valve (principal); E78.5 Hyperlipidemia, unspecified; R05 Cough | CPT/HCPCS: 99214; G0463 ==